=== PATIENT | female | born 1995 | race Caucasian/White ===

== ENCOUNTER 2017-07-01 10:32 | Emergency (ER) | payer OTHER ==
--- NOTE | 2017-07-01 10:37 | EDM.PDOC ---
ED HPI GENERAL MEDICAL PROBLEM - General Chief Complaint: Genitourinary Problem Stated Complaint: CRAMPS Time Seen by Provider: 07/01/17 10:32 Source of Information: Reports: Patient, Family History Limitations: Reports: No Limitations - History of Present Illness INITIAL COMMENTS - FREE TEXT/NARRATIVE: 21 years old w f came to the with her mom due to pain at her mid lower abd. pain /cramping which subsided [employer]. Pt denies dysuria, she is sexually active, denies trauma and denies vag discharge as well. No F/C/N/V or any other acute medical issues as well. BP 134/65 RR 17 Pulse ox 100% on RA temp 36.4 Onset Date: 07/01/17 Onset Time: 07:00 Duration: Hour(s): Location: Reports: Pelvis Quality: Reports: Ache, Dull Improves with: Reports: Rest Worsens with: Reports: Movement Context: Reports: Other (unknown) Associated Symptoms: Reports: No Other Symptoms - Related Data Allergies Allergy/AdvReac Type Severity Reaction Status Date / Time No Known Allergies Allergy Verified 07/01/17 11:04 Home Meds: Home Meds NK [No Known Home Meds] 07/01/17 [History] ED ROS GENERAL - Review of Systems Review Of Systems: See Below Constitutional: Reports: No Symptoms HEENT: Reports: No Symptoms Respiratory: Reports: No Symptoms Cardiovascular: Reports: No Symptoms Endocrine: Reports: No Symptoms GI/Abdominal: Reports: No Symptoms : Reports: No Symptoms Musculoskeletal: Reports: No Symptoms Skin: Reports: No Symptoms Neurological: Reports: No Symptoms Psychiatric: Reports: No Symptoms Hematologic/Lymphatic: Reports: No Symptoms Immunologic: Reports: No Symptoms ED EXAM, RENAL/ - Physical Exam Exam: See Below Exam Limited By: No Limitations General Appearance: Alert, WD/WN, No Apparent Distress Eye Exam: Bilateral Eye: Normal Inspection Ears: Normal External Exam Nose: Normal Inspection Throat/Mouth: Normal Inspection Head: Atraumatic, Normocephalic Neck: Normal Inspection, Supple, Non-Tender Respiratory/Chest: No Respiratory Distress, Lungs Clear Cardiovascular: Normal Peripheral Pulses, Regular Rate, Rhythm, No Edema GI/Abdominal: Normal Bowel Sounds, Soft, Non-Tender (Female) Exam: Deferred (refused) Rectal (Female) Exam: Deferred Back Exam: Normal Inspection Extremities: Normal Inspection Neurological: Alert, Oriented Psychiatric: Normal Affect, Normal Mood Skin Exam: Warm, Dry, Intact Lymphatic: No Adenopathy Course - Vital Signs Text/Narrative:: 21 years old w f came to the with her mom due to pain at her mid lower abd. pain /cramping which subsided [employer]. Pt denies dysuria, she is sexually active, denies trauma and denies vag discharge as well. No F/C/N/V or any other acute medical issues as well. BP 134/65 RR 17 Pulse ox 100% on RA temp 36.4 PE: Sprapubic tenderness, subsided [employer], refused pelvic exam Labs: UA and UPT were neg impression: Suprapubic tenderness, subsided [employer] Plan: D/C with instructions Last Recorded V/S: Last Vital Signs Temp 36.7 C 07/01/17 10:35 Pulse 57 L 07/01/17 10:35 Resp 18 07/01/17 10:35 BP 134/65 07/01/17 10:35 Pulse Ox 100 07/01/17 10:35 - Orders/Labs/Meds Labs: Laboratory Tests 07/01/17 07/01/17 Range/Units 10:47 10:47 Urine Color Yellow (YELLOW) Urine Appearance Clear (CLEAR) Urine pH 7.0 H (5.0-6.5) Ur Specific [place] 1.010 (1.010-1.025) Urine Protein Negative (NEGATIVE) mg/dL Urine Glucose (UA) Normal (NEGATIVE) mg/dL Urine Ketones Negative (NEGATIVE) mg/dL Urine Occult Blood Negative (NEGATIVE) Urine Nitrite Negative (NEGATIVE) Urine Bilirubin Negative (NEGATIVE) Urine Urobilinogen Normal (NEGATIVE) mg/dL Ur Leukocyte Esterase Negative (NEGATIVE) Urine WBC 0-5 (0) Ur Squamous Epith Cells Few H (NS,R,O) Urine Bacteria Few H (NS) Urine HCG, Qual Negative (NEGATIVE) Departure - Departure Time of Disposition: 11:09 Disposition: Home, Self-Care 01 Condition: Good Clinical Impression: Suprapubic abdominal pain - Discharge Information Referrals: PCP,None [Primary Care Provider] - Forms: ED Department Discharge Additional Instructions: Please f/u, come back if the symptoms get worse acutely
== END 2017-07-01 11:13 | disposition home or self-care (01) ==
LOC: FB.ED 10:32
DX: R10.30 Lower abdominal pain, unspecified (principal)
CPT/HCPCS: 81001; 81025; 99283